=== PATIENT | female | born 1955 ===

== ENCOUNTER 2019-07-22 17:59 | Inpatient (IN) ==
[2019-07-22] MEDS ORDERED: GLUCAGON 1 MG VIAL IM PRN (21:09)
[2019-07-22] MEDS ORDERED: DEXTROSE 50% 25 GM/50 ML VIAL IV PRN (21:09)
[2019-07-22] MEDS ORDERED: DEXTROSE 10% 250 ML BAG IV PRN (21:09)
[2019-07-22] MEDS ORDERED: ENOXAPARIN 40 MG/0.4 ML SYRINGE SUBCUT SCH (21:30)
[2019-07-23 01:46] LABS: Albumin 2.9 G/DL (3.4-5.0); Bilirubin,Total 0.4 MG/DL (0.2-1.0); Calcium 8.3 MG/DL (8.5-10.1); Ferritin 346.1 ng/ml (8-252); Osmolality,Calculated 275.1 MOS/KG (273-304); Total Protein 6.9 G/DL (6.4-8.3)
[2019-07-23 01:59] LABS: Basophils % 0.2 % (0.0-0.8); Hematocrit 38.2 VOL% (35.7-47.0); Immature Granulocytes % 0.8 %; Immature Granulocytes Absolute 0.04 #; Lymphocytes # 0.7 10*3/uL (1.4-4.0); Lymphocytes % 13.6 % (21.3-54.2); Mean Corpuscular Volume 84.7 FL (87-102); Mean Platelet Volume 11.4 FL (9.6-12.0); Neutrophils % 80.4 % (38.7-73.9); Platelet Count 199 T/CUMM (130-400); Red Blood Count 4.51 MC/CUMM (3.8-5.5); Red Cell Distribution Width 12.5 % (9.3-17.3); White Blood Count 5.2 T/CUMM (4-12)
[2019-07-23] MEDS: INSULIN REGULAR 100 UNIT/ML SUBCUT SCH ×5 (03:20→21:16)
[2019-07-23] MEDS: HYDROcodone/CHLORPHENIRAMINE ER 5 ML UDCUP PO PRN ×3 (05:35→18:42)
[2019-07-23] MEDS: ACETAMINOPHEN 325 MG TABLET PO PRN ×3 (05:35→18:35)
[2019-07-23] MEDS ORDERED: PANTOPRAZOLE 40 MG TABLET PO SCH (09:00)
[2019-07-23] MEDS: ZINC SULFATE 220 MG CAPSULE PO SCH (09:17)
[2019-07-23] MEDS: HYDROXYCHLOROQUINE 200 MG TABLET PO SCH ×2 (15:37→21:17)
[2019-07-23] MEDS: cefTRIAXone 1,000 MG in SYRINGE 1 EACH IV SCH (16:38)
[2019-07-24] MEDS: ACETAMINOPHEN 325 MG TABLET PO PRN ×3 (01:27→21:00)
[2019-07-24 07:03] LABS: Basophils % 0.1 % (0.0-0.8); Hematocrit 33.6 VOL% (35.7-47.0); Hemoglobin 11.4 GM/DL (12.0-16.0); Immature Granulocytes % 0.7 %; Immature Granulocytes Absolute 0.07 #; Lymphocytes # 0.5 10*3/uL (1.4-4.0); Lymphocytes % 5.3 % (21.3-54.2); Mean Corpuscular HGB Conc 33.9 GM/DL (32-36); Mean Corpuscular Volume 85.3 FL (87-102); Mean Platelet Volume 11.1 FL (9.6-12.0); Monocytes % 2.2 % (1.7-12.7); Neutrophils % 91.7 % (38.7-73.9); Platelet Count 208 T/CUMM (130-400); Red Blood Count 3.94 MC/CUMM (3.8-5.5); Red Cell Distribution Width 12.5 % (9.3-17.3); White Blood Count 9.6 T/CUMM (4-12)
[2019-07-24 07:48] LABS: Albumin 2.7 G/DL (3.4-5.0); Bilirubin,Total 1.5 MG/DL (0.2-1.0); Calcium 8.1 MG/DL (8.5-10.1); Osmolality,Calculated 268.2 MOS/KG (273-304); Total Protein 6.6 G/DL (6.4-8.3)
[2019-07-24] MEDS ORDERED: PRAVASTATIN 20 MG TABLET PO SCH (09:00)
[2019-07-24] MEDS: INSULIN REGULAR 100 UNIT/ML SUBCUT SCH ×4 (10:03→21:00)
[2019-07-24] MEDS: cefTRIAXone 1,000 MG in SYRINGE 1 EACH IV SCH (10:10)
[2019-07-24] MEDS: ENOXAPARIN 40 MG/0.4 ML SYRINGE SUBCUT SCH (10:13)
[2019-07-24] MEDS: HYDROXYCHLOROQUINE 200 MG TABLET PO SCH ×2 (10:13→21:00)
[2019-07-24] MEDS: HYDROcodone/CHLORPHENIRAMINE ER 5 ML UDCUP PO PRN ×3 (10:30→21:00)
[2019-07-24 13:30] LABS: Band Neutrophils 2 % (0-10); Hypersegmented Neutrophil 1+; Lymphocytes 5 % (20-55); Microcytosis 1+; Platelet Estimate Normal; Segmented Neutrophils 91 % (50-85); Total Cells Counted 100
[2019-07-24 21:57] LABS: ABG Base Excess 1.8 MMOL/L (-2.5-2.5); ABG Oxygen Saturation 95.2 % (95-100); ABG PCO2 40.4 MM HG (35-48); ABG PH 7.423 (7.35-7.45); ABG PO2 73.3 MM HG (80-95); ABG TCO2 23.5 MMOL/L (23-27)
[2019-07-25] MEDS: ALBUTEROL INHALER 18 GM INH SCH ×4 (01:05→18:30)
[2019-07-25 07:04] LABS: Basophils % 0.2 % (0.0-0.8); Eosinophils % 0.1 % (0.00-10.9); Hematocrit 35.2 VOL% (35.7-47.0); Hemoglobin 11.9 GM/DL (12.0-16.0); Immature Granulocytes % 0.8 %; Immature Granulocytes Absolute 0.08 #; Lymphocytes # 0.5 10*3/uL (1.4-4.0); Mean Corpuscular HGB Conc 33.8 GM/DL (32-36); Mean Platelet Volume 10.9 FL (9.6-12.0); Monocytes % 2.1 % (1.7-12.7); Neutrophils % 91.8 % (38.7-73.9); Platelet Count 264 T/CUMM (130-400); Red Blood Count 4.14 MC/CUMM (3.8-5.5); Red Cell Distribution Width 12.6 % (9.3-17.3); White Blood Count 9.6 T/CUMM (4-12)
[2019-07-25 07:19] LABS: Calcium 8.7 MG/DL (8.5-10.1); Osmolality,Calculated 267.2 MOS/KG (273-304)
[2019-07-25] MEDS: INSULIN REGULAR 100 UNIT/ML SUBCUT SCH ×4 (09:21→22:08)
[2019-07-25] MEDS: ENOXAPARIN 40 MG/0.4 ML SYRINGE SUBCUT SCH ×2 (12:15→21:24)
[2019-07-25] MEDS: cefTRIAXone 1,000 MG in SYRINGE 1 EACH IV SCH (12:24)
[2019-07-25 12:25] LABS: Apearance,Urine CLEAR (Clear); Bilirubin,Urine Negative (Negative); Blood, Urine Small mg/dL (Negative); Glucose,Urine (UA) Negative (Negative); Hyaline Casts,Urine 1 /LPF (0-3); Ketones,Urine 5 mg/dL (Negative); Mucus,Urine Occasional /LPF (Occasional); Nitrite,Urine Negative (Negative); Protein,Urine 100 MG/DL; RBC,Urine 2 /HPF (0-4); Squamous Epithelial Cell,Urine Occasional /HPF (0-10); Transitional Epi Cells,Urine Occasional /HPF (<1); Urine Color Yellow (Yellow); Urine Specific Gravity 1.025 (1.001-1.035); Urine Urobilinogen < 2.0 EU/DL (0.2-1.0); WBC,Urine 30 /HPF (0-6)
[2019-07-25] MEDS: ZINC SULFATE 220 MG CAPSULE PO SCH (12:25)
[2019-07-25] MEDS: HYDROXYCHLOROQUINE 200 MG TABLET PO SCH ×2 (12:25→21:27)
[2019-07-25 13:15] LABS: Band Neutrophils 4 % (0-10); Lymphocytes 6 % (20-55); Segmented Neutrophils 89 % (50-85); Total Cells Counted 100
[2019-07-25 13:16] LABS: Hypochromasia 1+; Polychromasia Slight
[2019-07-25 13:17] LABS: Platelet Estimate Normal
[2019-07-25] MEDS ORDERED: LORazepam 2 MG/1 ML VIAL ONE (17:39)
[2019-07-25] MEDS ORDERED: LORazepam 2 MG/1 ML VIAL IV ONE (17:41)
[2019-07-25] MEDS: LORazepam 2 MG/1 ML VIAL IV PRN (21:24)
[2019-07-25] MEDS: ACETAMINOPHEN INJ 1,000 MG in PREMIX 1 EACH IV PRN (21:25)
[2019-07-25] MEDS: PIPERACILLIN/TAZOBACTAM 3,375 MG in SODIUM CHLORIDE 0.9% 100 ML IV SCH (21:26)
[2019-07-25] MEDS: SIMVASTATIN 20 MG TABLET PO SCH (21:27)
[2019-07-25] MEDS ORDERED: HALOPERIDOL 5 MG/ML AMP IM ONE (23:00)
[2019-07-26 04:48] LABS: Basophils % 0.2 % (0.0-0.8); Eosinophils % 0.3 % (0.00-10.9); Hematocrit 35.7 VOL% (35.7-47.0); Hemoglobin 11.8 GM/DL (12.0-16.0); Immature Granulocytes Absolute 0.11 #; Lymphocytes # 0.6 10*3/uL (1.4-4.0); Lymphocytes % 5.9 % (21.3-54.2); Mean Corpuscular HGB Conc 33.1 GM/DL (32-36); Mean Platelet Volume 10.5 FL (9.6-12.0); Monocytes % 2.1 % (1.7-12.7); Neutrophils % 90.5 % (38.7-73.9); Platelet Count 293 T/CUMM (130-400); Red Cell Distribution Width 12.5 % (9.3-17.3); White Blood Count 10.6 T/CUMM (4-12)
[2019-07-26 04:53] LABS: Calcium 8.9 MG/DL (8.5-10.1)
[2019-07-26] MEDS: LORazepam 2 MG/1 ML VIAL IV PRN ×4 (05:11→20:36)
[2019-07-26] MEDS: ALBUTEROL INHALER 18 GM INH SCH ×4 (08:09→20:37)
[2019-07-26] MEDS: PIPERACILLIN/TAZOBACTAM 3,375 MG in SODIUM CHLORIDE 0.9% 100 ML IV SCH ×2 (08:27→16:53)
[2019-07-26] MEDS: ASPIRIN EC 81 MG TABLET PO SCH ×2 (08:28→09:15)
[2019-07-26] MEDS: DILTIAZEM CD 300 MG CAPSULE PO SCH ×2 (08:28→09:15)
[2019-07-26] MEDS: LOSARTAN 50 MG TABLET PO SCH ×2 (08:28→09:15)
[2019-07-26] MEDS: ENOXAPARIN 40 MG/0.4 ML SYRINGE SUBCUT SCH ×2 (08:29→20:37)
[2019-07-26] MEDS: HYDROXYCHLOROQUINE 200 MG TABLET PO SCH ×3 (08:29→20:33)
[2019-07-26] MEDS: INSULIN REGULAR 100 UNIT/ML SUBCUT SCH ×4 (08:58→20:32)
[2019-07-26 09:14] VITALS: BP 154/73
[2019-07-26] MEDS: ACETAMINOPHEN INJ 1,000 MG in PREMIX 1 EACH IV PRN (12:18)
[2019-07-26] MEDS ORDERED: LORazepam 2 MG/1 ML VIAL ONE (18:19)
[2019-07-26] MEDS: SIMVASTATIN 20 MG TABLET PO SCH (20:33)
[2019-07-27] MEDS: PIPERACILLIN/TAZOBACTAM 3,375 MG in SODIUM CHLORIDE 0.9% 100 ML IV SCH (00:29)
[2019-07-27] MEDS: LORazepam 2 MG/1 ML VIAL IV PRN (00:29)
[2019-07-27] MEDS ORDERED: LORazepam 2 MG/1 ML VIAL IV ONE (01:15)
[2019-07-27] MEDS: ALBUTEROL INHALER 18 GM INH SCH (01:32)
[2019-07-27] MEDS ORDERED: PANTOPRAZOLE 40 MG VIAL IV SCH (09:00)
== END 2019-07-27 02:40 | disposition expired | DRG 177 ==
LOC: SUATTDRO 20:48 → N.2W 20:48 → N.CC 07-25 09:59
PROVIDERS: ADMIT Internal Medicine; ATTEND Internal Medicine